=== PATIENT | female | born 1940 | race Caucasian/White ===

== ENCOUNTER 2017-08-22 06:17 | Day surgery (SDC) | payer OTHER | END 2017-08-22 12:35 | disposition home or self-care (01) | LOC: AMB-ENDOS 06:17 | DX: K57.32 Diverticulitis of large intestine without perforation or abscess without bleeding (principal); K64.1 Second degree hemorrhoids; R00.1 Bradycardia, unspecified; R73.01 Impaired fasting glucose ==